=== PATIENT | female | born 1960 | race Caucasian/White ===

== ENCOUNTER 2017-06-19 11:15 | Emergency (ER) | payer OTHER ==
[2017-06-19] MEDS ORDERED: Famotidine 20 MG Tab PO ONE (12:06)
[2017-06-19] MEDS ORDERED: Ondansetron 4 MG Tab.DIS PO ONE (12:06)
[2017-06-19] MEDS ORDERED: Cyclobenzaprine 10 MG Tab PO ONE (12:07)
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
--- NOTE | 2017-06-21 08:53 | CR ---
Cervical Spine Min 4V INDICATION: neck pain COMPARISON: None FINDINGS: 5 view cervical spine. Slight reversal normal cervical lordosis. Alignment of the cervical spine is otherwise anatomic. No c ompression deformities or subluxations. No prevertebral soft tissue swelling. No degenerative disc di sease. No significant foraminal narrowing.
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
== END 2017-06-19 12:45 | disposition home or self-care (01) ==
LOC: JP.ED 11:15
DX: M62.838 Other muscle spasm (principal); M54.2 Cervicalgia; Z88.1 Allergy status to other antibiotic agents
CPT/HCPCS: 72050; 72072; 99284; A9270